=== PATIENT | male | born 1970 | race Caucasian/White ===

== ENCOUNTER 2025-02-24 10:46 | Outpatient (AMB) | payer OTHER, SELFPAY ==
--- NOTE | 2025-02-24 11:01 | A.OFFPC_ITS ---
Vital Signs 02/24/25 11:08 Height 5 ft 5 in Weight 53.977 kg BMI 19.8 BP 116/72 Respiration 14 Pulse 85 Pulse Source Pulse Oximeter Temp 98.0 F Temp Source Temporal Artery Scan Pulse Oximetry (%) 99 Oxygen Delivery Method Room Air Intake Visit Reasons: New patient - see comments Audio Visual Aide Required: No Accompanied by: Self / Same As Patient Allergies No Known Allergies Allergy (Verified 02/24/25 11:01) Tobacco use date assessed: 02/24/25 Dental Screening Dental Screen Date: 02/24/25 Did you have a dental visit in the last 12 months?: No Did you have a dental problem in the last 6 months where you did not have access to dental care?: No Was dental information given to patient?: No HPI HPI Comments History of Present Illness Details 54 year old male with history of alcohol use disorder, depression, anxiety presents to establish care and for management of chronic conditions. He Has been through rehab twice in and september 29 at [facility]. Just discharged from [facility] for detox and is doing well. No drink since 12/22. On naltrexone. Following with psychiatry at [facility]. He has many stressors- getting now living with parents and selling house. Tries to engage in things he enjoys and would like to get back to them. Feels stuck, descriobes anhedonia. No si/hi. Not working, awaiting ssi Concerns: None ROS: General: No fevers, malaise, unintentional weight loss HEENT: No blurred vision, diplopia. No sore throat, nasal congestion, rhinorrhea, sinus pain, ear pain Cardiovascular: No chest pain, palpitations, or leg edema Respiratory: No shortness of breath, wheezing, cough GI: No abdominal pain, nausea, vomiting, diarrhea, constipation, melena, hematochezia : No dysuria, hematuria, increased urinary frequency, decreased urinary output MSK: No myalgia, back pain Neuro: No headaches, weakness, paresthesias Skin: No rashes or lesions EXAM: Constitutional - Awake and Alert, No apparent distress Eyes - PERRL Cardiovascular - S1S2, RRR, No edema Respiratory - Normal lung expansion, Normal respiratory effort, No respiratory distress, CTA bilaterally Extremities - no calf tenderness bilaterally, no swelling Skin - Warm/Dry Neurological - Alert & oriented x3 Psychological - Appropriate affect PFSH Medical History (Updated 02/24/25 @ 11:18 by ELMER Devlin) Generalized anxiety disorder Major depressive disorder Alcohol dependence Social History Housing: House Patient Tobacco Use Status: Current everyday Tobacco user Cigarette Packs Per Day: 1 e-Cigarette/Vaping Use: Never Used service: No Current occupational status: unemployed Cognitive needs: No Hearing needs: No Vision needs: No Questionnaire PHQ-9 Over the last 2 weeks, how often have you been bothered by any of the following problems? 1. Little interest or pleasure in doing things: several days 2. Feeling down, depressed, or hopeless: more than half the days 3. Trouble falling or staying asleep, or sleeping too much: not at all 4. Feeling tired or having little energy: several days 5. Poor appetite or overeating: several days 6. Feeling bad about yourself - or that you are a failure or have let yourself or your family down: nearly every day 7. Trouble concentrating on things, such as reading the newspaper or watching television: several days 8. Moving or speaking so slowly that other people could have noticed. Or the opposite - being so fidgety or restless that you have been moving around a lot more than usual: not at all 9. Thoughts that you would be better off or of hurting yourself in some way: not at all Total score: 9 Depression Screening Interpretation: Positive Depression Screening Done: Yes 36880 - PHQ-9 Billing: Yes Source: Developed by Drs. Clyde Benedict, Devika Null, Mitchel Garg and colleagues, with an educational angel from [employer] (P). Thrive Questionnaire Date Thrive assessed: 02/24/25 I am a: Patient What is your living situation today?: I have a steady place to live Within the past 12 months, did the food you bought not last and you didn't have the money to get more?: Never true Within the past 12 months, did you worry whether your food would run out before you got money to buy more?: Never true Do you have trouble paying for medicines?: No Do you have trouble getting transportation to medical appointments?: No Do you have trouble paying your heating and electricity bill?: No Do you have trouble taking care of your child, family member or friend?: No Do you have trouble with day-to-day activities such as bathing, preparing meals, shopping, managing finances, etc.?: No Are you currently unemployed and looking for a job?: Yes Are you interested in more education?: No Please select the resources that you would like help with: None THRIVE Score: 0 BHAVIN-7 AMB Questionnaire BHAVIN-7 Date BHAVIN - 7 assessed: 02/24/25 Feeling nervous, anxious, or on edge: 2 = More than half the days Not being able to stop or control worryin = Nearly every day Worrying too much about different things: 1 = Several days Trouble relaxin = Several days Being so restless that it is hard to sit still: 0 = Not at all Becoming easily annoyed or irritable: 1 = Several days Feeling afraid as if something awful might happen: 2 = More than half the days Total BHAVIN-7 score (0-4 normal; 5-9 mild; 10-14 moderate; 15-21 severe): 10 Source: Developed by Drs. Clyde Benedict, Devika Null, Mitchel Garg and colleagues, with an educational nagel from [employer] (P). BHAVIN-7 Assessment Billing BHAVIN-7 Assessment Tool: BHAVIN-7 Assessment 92288 Physical exam (Primary Care) Vital Signs: Last Vital Signs Temp 98.0 F 02/24/25 11:08 Pulse 85 02/24/25 11:08 Resp 14 02/24/25 11:08 BP 116/72 02/24/25 11:08 Pulse Ox 99 02/24/25 11:08 Oxygen Delivery Method Room Air 02/24/25 11:08 BMI result Body Mass Index 19.8 Tobacco/Smoking Status: Tobacco use Status Tobacco use date assessed 02/24/25 02/24/25 11:12 Patient Tobacco Use Status Current everyday Tobacco 02/24/25 11:12 e-Cigarette/Vaping Use Never Used 02/24/25 11:12 PHQ-9: PHQ-9 Score PHQ-9: Total score 9 02/24/25 11:15 Depression Screening Interpretation: Positive Thrive Assessment: Date of Thrive Assessment Date Thrive assessed 02/24/25 02/24/25 11:12 Coding Level of Care Code New Pt Level 4 (11952) Complex EM visit Add On G2211 Diagnoses Major depressive disorder F32.9 Generalized anxiety disorder F41.1 Alcohol use disorder, severe, in early remission F10.21 Additional Codes PHQ-9 - 19239 - PHQ-9 Billing: Yes ([id number]) BHAVIN-7 Assessment Billing - BHAVIN-7 Assessment Tool: BHAVIN-7 Assessment 54073 ([id number]) Assessment & Plan Assessment & Plan (1) Major depressive disorder: Code(s): F32.9 - Major depressive disorder, single episode, unspecified Category: Medical Plan: PHQ9 9 but improving. Continue prozac and wellbutrin. follow with psychiatrty as scheduled (2) Generalized anxiety disorder: Code(s): F41.1 - Generalized anxiety disorder Category: Medical Plan: Follow [facility] psychiatry, continue current therapies. [id number] (3) Alcohol use disorder, severe, in early remission: Code(s): F10.21 - Alcohol dependence, in remission Category: Medical Plan: Commended on success thus far and encouraged to continue. Continue naltrexone. Continue folic acid. Add thiamine Plan Follow up for annual exam. labs as ordered Orders: Orders Basic Metabolic Panel 02/24/25 F10.21 - Alcohol dependence, in remission, F32.9 - Major depressive disorder, single episode, unspecified, F41.1 - Generalized anxiety disorder, Z00.00 - Encounter for general adult medical examination without abnormal findings Complete Blood Count Auto Diff 02/24/25 F10.21 - Alcohol dependence, in remission, F32.9 - Major depressive disorder, single episode, unspecified, F41.1 - Generalized anxiety disorder, Z00.00 - Encounter for general adult medical examination without abnormal findings Prostate Specific Antigen 02/24/25 F10.21 - Alcohol dependence, in remission, F32.9 - Major depressive disorder, single episode, unspecified, F41.1 - Generalized anxiety disorder, Z00.00 - Encounter for general adult medical examination without abnormal findings Vitamin D 25-OH Total 02/24/25 F10.21 - Alcohol dependence, in remission, F32.9 - Major depressive disorder, single episode, unspecified, F41.1 - Generalized anxiety disorder, Z00.00 - Encounter for general adult medical examination without abnormal findings Hemoglobin A1c 02/24/25 F10.21 - Alcohol dependence, in remission, F32.9 - Major depressive disorder, single episode, unspecified, F41.1 - Generalized anxiety disorder, Z00.00 - Encounter for general adult medical examination without abnormal findings Lipid Panel 02/24/25 F10.21 - Alcohol dependence, in remission, F32.9 - Major depressive disorder, single episode, unspecified, F41.1 - Generalized anxiety disorder, Z00.00 - Encounter for general adult medical examination without abnormal findings Liver Panel 02/24/25 F10.21 - Alcohol dependence, in remission, F32.9 - Major depressive disorder, single episode, unspecified, F41.1 - Generalized anxiety disorder, Z00.00 - Encounter for general adult medical examination without abnormal findings TSH reflex Free T4 02/24/25 F10.21 - Alcohol dependence, in remission, F32.9 - Major depressive disorder, single episode, unspecified, F41.1 - Generalized anxiety disorder, Z00.00 - Encounter for general adult medical examination without abnormal findings Vitamin B12 and Folate 02/24/25 F10.21 - Alcohol dependence, in remission, F32.9 - Major depressive disorder, single episode, unspecified, F41.1 - Generalized anxiety disorder, Z00.00 - Encounter for general adult medical examination without abnormal findings Referrals Gastroenterology Referral Z12.11 - Encounter for screening for malignant mayelin plasm of colon Medications: New thiamine HCl (vitamin B1) 100 mg PO DAILY 90 caps 1RF
[2025-02-24 11:08] VITALS: BP 116/72; PULSE 85; RESP 14; TEMP 36.7; O2SAT 99; BMI 19.8
== END 2025-02-24 11:38 | disposition home or self-care (01) ==
LOC: HO.HMCHD 10:47
PROVIDERS: Visit Provider Physician Assistant
DX: F32.9 Major depressive disorder, single episode, unspecified (principal); F41.1 Generalized anxiety disorder; F10.21 Alcohol dependence, in remission

== ENCOUNTER → 2025-02-24 10:46 | Outpatient (BNVA) | payer OTHER, SELFPAY | PROVIDERS: Visit Provider Physician Assistant | DX: F41.1 Generalized anxiety disorder (principal); F32.9 Major depressive disorder, single episode, unspecified; F10.21 Alcohol dependence, in remission; Z79.899 Other long term (current) drug therapy; Z13.31 Encounter for screening for depression; Z13.39 Encounter for screening examination for other mental health and behavioral disorders | CPT/HCPCS: 96127 ==

== ENCOUNTER 2025-02-24 11:47 | Outpatient (REF) | payer OTHER, SELFPAY ==
[2025-02-24 13:18] LABS: MANUAL DIFF FLAG NO
[2025-02-24 13:27] LABS: Hematocrit 38.0 % (42.0-52.0); Hemoglobin 11.8 g/dl (14.0-18.0); Imm Gran Abs Auto 0.03 X10*3/uL (0.00-0.03); Imm Gran Pct Auto 0.4 % (0.0-0.4); Lymphocytes Absolute Auto 1.8 X10*3/uL (1.2-4.9); Mean Corpuscular HGB Conc 31.1 g/dl (31.0-36.0); Mean Corpuscular Hemoglobin 28.9 pg (27.0-33.0); Mean Corpuscular Volume 93.1 fL (80.0-98.0); NRBC Abs Auto 0.000 X10*3/uL (0.0-0.012); NRBC Pct Auto 0.0 /100WBC (0.0-0.2); Platelet Count 339 X10*3/uL (160-400); Red Blood Count 4.08 X10*6/uL (4.60-5.80); White Blood Count 8.4 X10*3/uL (4.8-10.8)
[2025-02-24 13:48] LABS: Hemoglobin A1C 85.6909 umol/L; Total Hemoglobin (HGBA1C) 3313.4201 umol/L
[2025-02-24 13:51] LABS: Alanine Aminotransferase 11 U/L (0-40); Albumin Level 4.3 g/dL (3.5-5.0); Alkaline Phosphatase 78 U/L (39-117); Anion Gap 12 (12-20); Aspartate Amino Transferase 19 U/L (5-37); Blood Urea Nitrogen 5 mg/dL (9-16); Calcium 9.5 mg/dL (8.4-10.2); Carbon Dioxide 29 mmol/L (22-29); Chloride 105 mmol/L (96-108); Cholesterol 198 mg/dL (<200); Estimated Glomerular Filt Rate > 60; HDL Cholesterol 44 mg/dL (>40); Potassium 4.0 mmol/L (3.3-5.1); Sodium 142 mmol/L (135-145); Total Protein 7.0 g/dL (6.5-8.0); Triglycerides 80 mg/dL (<150)
[2025-02-24 14:15] LABS: Folate 9.7 ng/mL (> or = 4.0); Prostate Specific Antigen 0.60 ng/mL (<0.05-4.0); Vitamin B12 286 pg/mL (200-900)
== END 2025-02-24 11:48 | disposition home or self-care (01) ==
LOC: HO.10HDL 11:47
PROVIDERS: Visit Provider Physician Assistant
DX: Z00.00 Encounter for general adult medical examination without abnormal findings (principal); Z12.5 Encounter for screening for malignant neoplasm of prostate; Z13.6 Encounter for screening for cardiovascular disorders; Z13.1 Encounter for screening for diabetes mellitus; F32.9 Major depressive disorder, single episode, unspecified; F41.1 Generalized anxiety disorder; F10.21 Alcohol dependence, in remission
CPT/HCPCS: 36415; 80048; 80061; 80076; 82306; 82607; 82746; 83036; 84153; 84443; 85025

== ENCOUNTER 2025-06-23 10:03 | Outpatient (AMB) | payer OTHER, SELFPAY ==
--- NOTE | 2025-06-23 10:05 | MHC.PC.OV ---
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: No Accompanied by: Self / Same As Patient Allergies No Known Allergies Allergy (Verified 06/23/25 10:05) Medication List - Last Reconciled 06/23/25 by ELMER Devlin atorvastatin (Lipitor) 20 mg PO DAILY bupropion HCl SR 200 mg PO QAM fluoxetine 20 mg PO DAILY folic acid 1 mg PO DAILY hydroxyzine HCl 50 mg PO BEDTIME naltrexone 50 mg PO DAILY propranolol 20 mg PO BID thiamine HCl (vitamin B1) 100 mg PO DAILY trazodone 1.5 tablets orally bedtime; Tobacco use date assessed: 02/24/25 Dental Screening Dental Screen Date: 02/24/25 HPI HPI Comments History of Present Illness Details 54 year old male with history of alcohol use disorder, depression, anxiety, cigarette smoking presents for management of chronic conditions. AUD- has decreased consumption. Drinking 2-3 beers about 3 days per week. Does not feel like he will increase consumption. No other substances. No support groups, does not find these helpful. On thiamine and folic acid. Stopped naltrexone. H/o rehab at [facility] MDD/General anxiety disorder- improving. Still going through his divorce but feels he is managing this well. Following with [facility] for psychiatry (Mireya Harrison), seen yesterday with some dosage changes. He continues on propranolol, bupropion, fluoxetine, trazodone as well as hydroxyzine. Anhedonia has improved. Not working, had been in construction. Applied for SSI, anxiety is too significant. No SI/HI Hyperlipidemia-last LDL 138. Was started on atorvastatin 20 mg daily Cigarette smoker-continue smoking 1 pack of cigarettes per day. Not working on quitting at this time due to stressors Concerns: None ROS: See HPI EXAM: Constitutional - Awake and Alert, No apparent distress Eyes - PERRL Cardiovascular - S1S2, RRR, No edema Respiratory - Normal lung expansion, Normal respiratory effort, No respiratory distress, CTA bilaterally Extremities - no calf tenderness bilaterally, no swelling Skin - Warm/Dry Neurological - Alert & oriented x3. Hands and mouth tremulous Psychological - Appropriate affect [facility] Medical History (Updated 06/23/25 @ 10:30 by ELMER Devlin) Hyperlipidemia Generalized anxiety disorder Major depressive disorder Alcohol dependence Social History Housing: House Patient Tobacco Use Status: Current everyday Tobacco user Cigarette Packs Per Day: 1 e-Cigarette/Vaping Use: Never Used service: No Current occupational status: unemployed Cognitive needs: No Hearing needs: No Vision needs: No Questionnaire Thrive Questionnaire Date Thrive assessed: 02/24/25 BHAVIN-7 AMB Questionnaire BHAVIN-7 Date BHAVIN - 7 assessed: 02/24/25 Source: Developed by Drs. Clyde Benedict, Devika Null, Mitchel Garg and colleagues, with an educational angel from [employer]. Physical exam (Primary Care) Vital Signs: Last Vital Signs Temp 97.8 F 06/23/25 10:15 Pulse 93 06/23/25 10:15 BP 160/82 H 06/23/25 10:15 Pulse Ox 99 06/23/25 10:15 Oxygen Delivery Method Room Air 06/23/25 10:15 Tobacco/Smoking Status: Tobacco use Status Tobacco use date assessed 02/24/25 06/23/25 10:07 Patient Tobacco Use Status Current everyday Tobacco 06/23/25 10:07 e-Cigarette/Vaping Use Never Used 06/23/25 10:07 Thrive Assessment: Date of Thrive Assessment Date Thrive assessed 02/24/25 06/23/25 10:07 Coding Level of Care Code Est Pt Level 4 (67775) Add On Problem Visit Only Diagnoses Major depressive disorder F32.9 Generalized anxiety disorder F41.1 Alcohol use disorder, severe, in early remission F10.21 Cigarette smoker F17.210 Hyperlipidemia E78.5 Assessment & Plan Assessment & Plan (1) Major depressive disorder: Code(s): F32.9 - Major depressive disorder, single episode, unspecified Category: Medical Plan: Continue current therapies. No alarm symptoms at this time follow with psychiatrty as scheduled for medication management as well as counseling (2) Generalized anxiety disorder: Code(s): F41.1 - Generalized anxiety disorder Category: Medical Plan: Improving. Continue following with Psychiatry and continue current therapies (3) Alcohol use disorder, severe, in early remission: Code(s): F10.21 - Alcohol dependence, in remission Category: Medical Plan: Has resumed alcohol consumption. Discussed that while he is consuming alcohol as recommended for a male, given his recent history he is at significant risk of relapsing into worsening alcohol use disorder. Recommend reaching out to support groups even if these are online as he is worried about his anxiety. Recommend resuming naltrexone but he is not interested in this. Continue thiamine, folic acid and bupropion. He is tremulous but reports this is related to his anxiety and denies any alcohol withdrawal. (4) Cigarette smoker: Code(s): F17.210 - Nicotine dependence, cigarettes, uncomplicated Category: Medical Plan: Not interested in quitting at this time due to significant stressors. We will discuss lung cancer screening at next visit as he is unable to manage an additional referral (5) Hyperlipidemia: Code(s): E78.5 - Hyperlipidemia, unspecified Category: Medical Plan: Check lipid panel and liver panel. Continue atorvastatin 20 mg daily and diet low in saturated fats and highly processed foods. Plan Follow up for annual exam. labs as ordered Orders: Orders Lipid Panel Today E78.5 - Hyperlipidemia, unspecified Liver Panel Today E78.5 - Hyperlipidemia, unspecified
[2025-06-23 10:15] VITALS: BP 160/82; PULSE 93; TEMP 36.6; O2SAT 99
== END 2025-06-23 10:36 | disposition home or self-care (01) ==
LOC: HO.HMCHD 10:03
PROVIDERS: PCP Physician Assistant; Visit Provider Physician Assistant
DX: F32.9 Major depressive disorder, single episode, unspecified (principal); F41.1 Generalized anxiety disorder; F10.21 Alcohol dependence, in remission; F17.210 Nicotine dependence, cigarettes, uncomplicated; E78.5 Hyperlipidemia, unspecified

== ENCOUNTER 2025-06-25 11:13 | Outpatient (REF) | payer OTHER, SELFPAY ==
[2025-06-25 13:07] LABS: MANUAL DIFF FLAG NO
[2025-06-25 13:11] LABS: Hematocrit 36.3 % (42.0-52.0); Hemoglobin 12.4 g/dl (14.0-18.0); Imm Gran Abs Auto 0.02 X10*3/uL (0.00-0.03); Imm Gran Pct Auto 0.5 % (0.0-0.4); Lymphocytes Absolute Auto 1.8 X10*3/uL (1.2-4.9); Mean Corpuscular HGB Conc 34.2 g/dl (31.0-36.0); Mean Corpuscular Hemoglobin 32.5 pg (27.0-33.0); Mean Corpuscular Volume 95.0 fL (80.0-98.0); NRBC Abs Auto 0.000 X10*3/uL (0.0-0.012); NRBC Pct Auto 0.0 /100WBC (0.0-0.2); Platelet Count 177 X10*3/uL (160-400); Red Blood Count 3.82 X10*6/uL (4.60-5.80); White Blood Count 4.4 X10*3/uL (4.8-10.8)
[2025-06-25 13:35] LABS: Alanine Aminotransferase < 6 U/L (0-40); Albumin Level 4.0 g/dL (3.5-5.0); Alkaline Phosphatase 59 U/L (39-117); Aspartate Amino Transferase 26 U/L (5-37); Cholesterol 130 mg/dL (<200); HDL Cholesterol 73 mg/dL (>40); Total Protein 6.3 g/dL (6.5-8.0); Triglycerides 65 mg/dL (<150)
[2025-06-25 13:58] LABS: Vitamin B12 239 pg/mL (200-900)
[2025-06-25 14:11] LABS: Alanine Aminotransferase < 6 U/L (0-40); Albumin Level 4.0 g/dL (3.5-5.0); Alkaline Phosphatase 61 U/L (39-117); Anion Gap 15 (12-20); Aspartate Amino Transferase 25 U/L (5-37); Blood Urea Nitrogen 7 mg/dL (9-16); Calcium 9.0 mg/dL (8.4-10.2); Carbon Dioxide 31 mmol/L (22-29); Chloride 97 mmol/L (96-108); Estimated Glomerular Filt Rate > 60; Potassium 3.0 mmol/L (3.3-5.1); Sodium 140 mmol/L (135-145); Total Protein 6.4 g/dL (6.5-8.0)
[2025-06-25 14:18] LABS: Thyroid Stimulating Hormone 0.49 uIU/mL (0.32-4.0)
== END 2025-06-25 11:14 | disposition home or self-care (01) ==
LOC: HO.10HDL 11:13
PROVIDERS: Nurse Practitioner Psychiatric/Mental Health; Visit Provider Physician Assistant
DX: E78.5 Hyperlipidemia, unspecified (principal)
CPT/HCPCS: 36415; 80053; 80061; 80076; 82248; 82607; 84443; 85025